=== PATIENT | male | born 1955 | race Caucasian/White ===

== ENCOUNTER → 2021-02-26 | Day surgery (SDC) | payer MEDICARE, OTHER ==
[~2021-02-26] MED LIST: AMOXICILLIN875 MG PO; DILANTIN100 MG PO; DILTIAZEM ER300 MG PO; ESCITALOPRAM OX20 MG PO; IMITREX25 MG PO; LEXAPRO20 MG PO; NAPROXEN500 MG PO; VALACYCLOVIR1000 MG PO
== END | disposition home or self-care (01) ==
LOC: OR 05:58
DX: Z12.11 Encounter for screening for malignant neoplasm of colon (principal); N40.1 Benign prostatic hyperplasia with lower urinary tract symptoms; R39.15 Urgency of urination; E78.5 Hyperlipidemia, unspecified; J30.9 Allergic rhinitis, unspecified; F41.8 Other specified anxiety disorders; R73.03 Prediabetes; Z82.49 Family history of ischemic heart disease and other diseases of the circulatory system; Z86.010 Personal history of colon polyps
CPT/HCPCS: J2250; J2704; J7120

== ENCOUNTER → 2022-03-24 | Outpatient (CLI) | payer MEDICARE, OTHER | LOC: RAD 07:57 | DX: M54.50 Low back pain, unspecified (principal); M47.816 Spondylosis without myelopathy or radiculopathy, lumbar region | CPT/HCPCS: 72110 ==

== ENCOUNTER → 2022-04-25 | Outpatient (CLI) | payer MEDICARE, OTHER | LOC: KOH-I 04-23 13:45 | DX: M51.16 Intervertebral disc disorders with radiculopathy, lumbar region (principal); M47.26 Other spondylosis with radiculopathy, lumbar region; M48.061 Spinal stenosis, lumbar region without neurogenic claudication; M53.3 Sacrococcygeal disorders, not elsewhere classified | CPT/HCPCS: 72148 ==